=== PATIENT | female | born 2000 | race Caucasian/White ===

== ENCOUNTER 2025-04-20 19:59 | Emergency (ER) | payer SELFPAY ==
[2025-04-20 20:14] VITALS: BP 143/99
[2025-04-20 23:04] VITALS: BP 131/81
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
[2025-04-20] MEDS: TYLENOL 1000 MG PO (23:20)
== END 2025-04-21 01:15 | disposition home or self-care (01) ==
LOC: EMR 19:59
PROVIDERS: EMERGENCY PHYSICIAN Student in an Organized Health Care Education/Training Program; FAMILY PHYSICIAN Family Medicine
DX: S06.0X0A Concussion without loss of consciousness, initial encounter (principal); V43.52XA Car driver injured in collision with other type car in traffic accident, initial encounter; Y92.414 Local residential or business street as the place of occurrence of the external cause
CPT/HCPCS: 99284; 70450; 70486; 71101; 93005